=== PATIENT | male | born 1985 | race Caucasian/White ===

== ENCOUNTER 2017-03-10 12:02 | Day surgery (SDC) | payer OTHER ==
--- NOTE | ~2017-03-10 | EGD ---
EGD REPORT [facility] [address] [address] NAME: JAY MORATAYA : [birth year] STATUS : REG [facility]#: [id number] AGE: 31 ADM/REG DATE : 03/10/17 MR#: [id number] REPORT SERV DATE: 03/10/17 DICTATED BY: AUGUSTINE BRANNON DATE: 03/10/17 REPORT STATUS : Draft TRANSCRIBED BY: [facility] DATE: 03/10/17 Endoscopy Center Patient Name: Jay Morataya Date of : 1985 Attending MD: AUGUSTINE BRANNON MD Procedure Date No Time: 03/10/2017 Procedure: Colonoscopy Indications: Screening in patient at increased risk: Colorectal cancer in father before age 60, FH of Ulcerative Colitis - 1st degree relative Referring MD: ZELDA DIALLO Medicines: Propofol per Anesthesia Complications: No immediate complications. Estimated blood loss: None. Procedure: Pre-Anesthesia Assessment: - After reviewing the risks and benefits, the patient was deemed in satisfactory condition to undergo the procedure. - Prior to the procedure, a History and Physical was performed, and patient medications and allergies were reviewed. The patient's tolerance of previous anesthesia was also reviewed. The risks and benefits of the procedure and the sedation options and risks were discussed with the patient. All questions were answered, and informed consent was obtained. Prior Anticoagulants: The patient has taken no previous anticoagulant or antiplatelet agents. ASA Grade Assessment: II - A patient with mild systemic disease. After reviewing the risks and benefits, the patient was deemed in satisfactory condition to undergo the procedure. After I obtained informed consent, the scope was passed under direct vision. Throughout the procedure, the patient's blood pressure, pulse, and oxygen saturations were monitored continuously. The CF [id number] was introduced through the anus and advanced to the cecum, identified by appendiceal orifice and ileocecal valve. The colonoscopy was somewhat difficult due to the patient's body habitus. The ileocecal valve and appendiceal orifice were photographed. The patient tolerated the procedure well. The quality of the bowel preparation was good. The bowel preparation used was split dose polyethylene glycol (PEG). Scope withdrawal time was greater than 6 minutes. Findings: The perianal and digital rectal examinations were normal. Pertinent EGD REPORT [address] [address] NAME: JAY MORATAYA : [birth year] STATUS : REG [facility]#: [id number] AGE: 31 ADM/REG DATE : 03/10/17 MR#: [id number] REPORT SERV DATE: 03/10/17 DICTATED BY: AUGUSTINE BRANNON DATE: 03/10/17 REPORT STATUS : Draft TRANSCRIBED BY: [employer] DATE: 03/10/17 negatives include normal sphincter tone. Non-bleeding internal hemorrhoids were found during retroflexion and were medium-sized and Grade I (internal hemorrhoids that do not prolapse). A sessile polyp was found in the ascending colon. The polyp was 9 mm in size. The polyp was removed with a hot snare. Resection and retrieval were complete. Estimated blood loss: none. The exam was otherwise without abnormality. Impression: - Non-bleeding internal hemorrhoids. - One 9 mm polyp in the ascending colon. Resected and retrieved. - The examination was otherwise normal. Recommendation: - Discharge patient to home (ambulatory). - Return to previous diet. - Continue present medications. - Await pathology results. - Repeat colonoscopy in 5 years for screening purposes and for surveillance. - Patient has a contact number available for emergencies. The signs and symptoms of potential delayed complications were discussed with the patient. Return to normal activities tomorrow. Written discharge instructions were provided to the patient. Procedure Code(s): --- Professional --- 93675, Colonoscopy, flexible, proximal to splenic flexure; with removal of tumor(s), polyp(s), or other lesion(s) by snare technique Diagnosis Code(s): --- Professional --- K64.0, First degree hemorrhoids D12.2, Benign neoplasm of ascending colon Z12.11, Encounter for screening for malignant neoplasm of colon Z80.0, Family history of malignant neoplasm of digestive organs Z83.79, Family history of other diseases of the digestive system CPT copyright 2013 [employer]. All rights reserved. The codes documented in this report are preliminary and upon ethanol maintenance mechanic review may be revised to meet current compliance requirements. EGD REPORT [facility] [address] [address] NAME: JAY MORATAYA : [birth year] STATUS : REG [facility]#: [id number] AGE: 31 ADM/REG DATE : 03/10/17 MR#: [id number] REPORT SERV DATE: 03/10/17 DICTATED BY: AUGUSTINE BRANNON. DATE: 03/10/17 REPORT STATUS : Draft TRANSCRIBED BY: [employer] DATE: 03/10/17 AUGUSTINE BRANNON MD 03/10/2017 2:40 PM This report has been signed electronically. Number of Addenda: 0 Note Initiated On: 03/10/2017 2:06 PM Scope Withdrawal Time 0 hours 6 minutes 54 seconds [address] [address]
--- NOTE | ~2017-03-10 | EGD ---
EGD REPORT [facility] [address] [address] NAME: JAY MORATAYA : [birth year] STATUS : REG [facility]#: [id number] AGE: 31 ADM/REG DATE : 03/10/17 MR#: [id number] REPORT SERV DATE: 03/10/17 DICTATED BY: AUGUSTINE BRANNON DATE: 03/10/17 REPORT STATUS : Draft TRANSCRIBED BY: [facility] DATE: 03/10/17 Endoscopy Center Patient Name: Jay Morataya Date of : 1985 Attending MD: AUGUSTINE BRANNON MD Procedure Date No Time: 03/10/2017 Procedure: Upper GI endoscopy Indications: Heartburn Referring MD: ZELDA DIALLO Medicines: Propofol per Anesthesia Complications: No immediate complications. Estimated blood loss: None. Procedure: Pre-Anesthesia Assessment: - After reviewing the risks and benefits, the patient was deemed in satisfactory condition to undergo the procedure. - Prior to the procedure, a History and Physical was performed, and patient medications and allergies were reviewed. The patient's tolerance of previous anesthesia was also reviewed. The risks and benefits of the procedure and the sedation options and risks were discussed with the patient. All questions were answered, and informed consent was obtained. Prior Anticoagulants: The patient has taken no previous anticoagulant or antiplatelet agents. ASA Grade Assessment: II - A patient with mild systemic disease. After reviewing the risks and benefits, the patient was deemed in satisfactory condition to undergo the procedure. After obtaining informed consent, the endoscope was passed under direct vision. Throughout the procedure, the patient's blood pressure, pulse, and oxygen saturations were monitored continuously. The GIF [id number] was introduced through the mouth, and advanced to the third part of duodenum. The upper GI endoscopy was accomplished without difficulty. The patient tolerated the procedure well. Findings: Savary-Lee Grade II (multiple lesions and folds, noncircumferential, with or without confluence) esophagitis with no bleeding was found. The entire examined stomach and gastroesophageal junction (on retroflexion) were normal. The examined duodenum was normal. Impression: - Savary-Lee Grade II reflux esophagitis. - Normal stomach and gastroesophageal junction. EGD REPORT [address] [address] NAME: JAY MORATAYA : [birth year] STATUS : REG [facility]#: [id number] AGE: 31 ADM/REG DATE : 03/10/17 MR#: [id number] REPORT SERV DATE: 03/10/17 DICTATED BY: AUGUSTINE BRANNON DATE: 03/10/17 REPORT STATUS : Draft TRANSCRIBED BY: [facility] DATE: 03/10/17 - Normal examined duodenum. Recommendation: - Discharge patient to home (ambulatory). - Return to previous diet. - Continue present medications including Prilosec (omeprazole) 40 mg twice daily before breakfast and supper. - Perform a colonoscopy today. - Patient has a contact number available for emergencies. The signs and symptoms of potential delayed complications were discussed with the patient. Return to normal activities tomorrow. Written discharge instructions were provided to the patient. Procedure Code(s): --- Professional --- 82065, Esophagogastroduodenoscopy, flexible, transoral; diagnostic, including collection of specimen(s) by brushing or washing, when performed (separate procedure) Diagnosis Code(s): --- Professional --- K21.0, Gastro-esophageal reflux disease with esophagitis R12, Heartburn CPT copyright 2013 [employer]. All rights reserved. The codes documented in this report are preliminary and upon doughnut machine operator review may be revised to meet current compliance requirements. AUGUSTINE BRANNON MD 03/10/2017 2:23 PM This report has been signed electronically. Number of Addenda: 0 Note Initiated On: 03/10/2017 2:09 PM Scope Withdrawal Time 0 hours 0 minutes 0 seconds [address] [place] [address]
[~2017-03-10 12:02] MED LIST: ALEVE220 MG PO; LIPOTRIAD1 CAP PO; POTASSIUM GLUCO99 MG; PRILOSEC40 MG PO; TESTOST CYP100 MG/ML IM; [UNRECOGNIZED DRUG - OTHER] PO
== END 2017-03-10 23:59 | disposition home or self-care (01) ==
LOC: DMU 12:02
PROVIDERS: Internal Medicine Gastroenterology
PROC: 0DBK8ZZ Excision of Ascending Colon, Via Natural or Artificial Opening Endoscopic (ICD-10-PCS; principal; 2017-03-10 13:45)
PROC: 0DJ08ZZ Inspection of Upper Intestinal Tract, Via Natural or Artificial Opening Endoscopic (ICD-10-PCS; 2017-03-10 13:45)
DX: Z12.11 Encounter for screening for malignant neoplasm of colon (principal); D12.2 Benign neoplasm of ascending colon; K64.0 First degree hemorrhoids; K21.0 Gastro-esophageal reflux disease with esophagitis; M19.042 Primary osteoarthritis, left hand; M19.041 Primary osteoarthritis, right hand; M17.9 Osteoarthritis of knee, unspecified; L70.9 Acne, unspecified; Z87.891 Personal history of nicotine dependence; Z91.038 Other insect allergy status; Z79.1 Long term (current) use of non-steroidal anti-inflammatories (NSAID); Z79.899 Other long term (current) drug therapy; Z98.890 Other specified postprocedural states
CPT/HCPCS: 88305